=== PATIENT | female | born 1945 | race Caucasian/White ===

== ENCOUNTER 2017-04-30 03:43 | Inpatient (IN) | payer MEDICARE, OTHER ==
[2017-04-29 16:11] LABS: INR 1.02
[~2017-04-30] VITALS: Ht 160 cm; Wt 74.8 kg
[2017-04-30] VITALS (11 sets, daily range): BP systolic 112–155; BP diastolic 63–86
[~2017-04-30 03:43] MED LIST: ALB18R INH; HYDR-2966 PO; LEVO-3 PO; METO-233 PO; [UNRECOGNIZED DRUG - CODE] PO
[2017-04-30] MEDS ORDERED: PROPOFOL EMUL(*) 10MG/ML 20 ML 20 ML ONE (12:53)
[2017-04-30] MEDS ORDERED: LIDOCAINE MPF 1% 5 ML VIAL ONE ×3 (12:53→18:49)
[2017-04-30] MEDS ORDERED: fentaNYL CITR 100 MCG/2 ML AMP ONE ×5 (12:53→17:13)
[2017-04-30] MEDS ORDERED: ONDANSETRON 4 MG/2 ML VIAL ONE ×2 (12:53→17:19)
[2017-04-30] MEDS ORDERED: DEXAMETHASONE SOD 4 MG/ML VIAL ONE (12:54)
[2017-04-30] MEDS ORDERED: cloNIDine EPIDUR INJ 100MCG/ML 40 MCG, ROPIVACAINE 0.5% 20 ML VIAL 25 ML, EPINEPHrine H... INJ ONE (14:00)
[2017-04-30] MEDS ORDERED: TRANEXAMIC AC 1000 MG/10ML SDV 1,000 MG in DEXTROSE 5% 50 ML BAG 50 ML IV ONE (14:00)
[2017-04-30] MEDS ORDERED: MIDAZOLAM 2 MG/2 ML VIAL IVP ONE (14:00)
[2017-04-30] MEDS ORDERED: LIDOCAINE/SOD BICARB 8.4% SYR ID ONE (14:00)
[2017-04-30] MEDS ORDERED: FAMOTIDINE 20 MG TAB PO ONE (14:00)
[2017-04-30] MEDS ORDERED: NORMOSOL R SOLN(*) 1000 ML BAG 1,000 ML IV PRN (14:00)
[2017-04-30] MEDS ORDERED: CLINDAMYCIN(*) 900 MG/NS 50 ML 50 ML IVPB ONE (14:00)
[2017-04-30] MEDS ORDERED: NS 0.9% IRRIGATION 1000ML PLCT IR ONE (16:24)
[2017-04-30] MEDS ORDERED: LACTATED RINGER 3000 ML BAG IR ONE (16:24)
[2017-04-30] MEDS ORDERED: ROPIVACAINE 0.5% 20 ML VIAL ONE (17:15)
[2017-04-30] MEDS ORDERED: NS 0.9% 20 ML SDV 20 ML ONE (17:16)
[2017-04-30] MEDS ORDERED: ROPIVACAINE 0.2% 20 ML VIAL ONE ×2 (17:17)
[2017-04-30] MEDS ORDERED: MAGNESIUM CITRATE 300 ML BTL PO PRN (17:25)
[2017-04-30] MEDS ORDERED: PROMETHAZINE 25 MG/ML 1 ML AMP IVP PRN (17:25)
[2017-04-30] MEDS ORDERED: NALOXONE HCL 0.4 MG/ML VIAL IVP PRN (17:25)
[2017-04-30] MEDS ORDERED: ONDANSETRON 4 MG/2 ML VIAL IVP PRN (17:25)
[2017-04-30] MEDS ORDERED: FLUSH 10 ML SYR IVP PRN (17:25)
[2017-04-30] MEDS ORDERED: diphenhydrAMINE 25 MG CAP PO PRN (17:25)
[2017-04-30] MEDS ORDERED: MORPHINE SULFATE 30 MG PCA IV PRN ×2 (17:25)
[2017-04-30] MEDS ORDERED: ACETAMINOPHEN 500 MG TAB PO PRN (17:25)
[2017-04-30] MEDS ORDERED: KCL/D5LR 20 MEQ/1000 ML PREMIX 1,000 ML IV PRN (17:25)
[2017-04-30] MEDS ORDERED: MIDAZOLAM 2 MG/2 ML VIAL ONE (17:33)
[2017-04-30] MEDS ORDERED: PROMETHAZINE 25 MG/ML 1 ML AMP ONE (17:36)
[2017-04-30] MEDS ORDERED: NORMOSOL R SOLN(*) 1000 ML BAG 1,000 ML IV ONE (17:59)
--- NOTE | 2017-04-30 18:10 | RADIOLOGY IMAGING REPORT ---
FACILITY: [facility] [place] PATIENT NAME: Alix Montemayor : 1945 MR: [id number] V: [id number] EXAM DATE: ORDERING PHYSICIAN: GORDO LOVE TECHNOLOGIST: Location: [facility] Patient: Alix Montemayor : 1945 Visit/Account:[id number] Date of Sevice: 04/30/2017 SHOULDER 1 VIEW RIGHT Indication: Postop right shoulder arthroplasty. Comparison: Unavailable Findings: 2 views right shoulder. Status post right shoulder arthroplasty. The orthopedic devices appear to be well situated. No periprosthetic lucencies. No acute fracture or dislocation. No bony lesions. There is old inferior right lateral rib fracture. Soft tissues show no radiopaque foreign body with some zarate bcutaneous air and edema. IMPRESSION: 1. Status post right shoulder arthroplasty without sequelae. Alignment appears anatomical. Report Dictated By: Gordo Black at 04/30/2017 6:04 PM Report E-Signed By: Gordo Black at 04/30/2017 6:07 PM WSN:[id number]
[2017-04-30] MEDS ORDERED: POTA20TA94 PO (18:37)
[2017-04-30] MEDS ORDERED: MULT1CAP59 PO (18:37)
[2017-04-30] MEDS ORDERED: PHENYLEPHRINE/NS/PF 0.4MG/10ML ONE (19:02)
--- NOTE | 2017-04-30 19:39 | Hospitalist Progress Note ---
Subjective Progress Notes Subjective Patient seen post-op. Reviewed PMHx and medications. At present she reports surgical site pain. She denies any CP/SOB. She did have some initial post-op nausea, but it has improved. Physical Exam Vital Signs Date Time Temp Pulse Resp B/P (MAP) Pulse Ox O2 Delivery O2 Flow Rate FiO2 04/30/17 18:25 97.9 63 16 147/82 (103) 94 Nasal Cannula 2.0 Intake and Output 05/01/17 07:00 Intake Total 1800 ml Balance 1800 ml Intake IV Total 1800 ml # Voids 1 General Appearance: Alert, Awake Cardiovascular: Regular Rate and Rhythm Respiratory: Clear to Auscultation Extremities: Other (RUE in immobilizer) Result Diagram: 04/30/17 1711 Assessment and Plan Problems: (1) HTN (hypertension) Status: Chronic Assessment & Plan: Will monitor BPs and resume her metoprolol and HCTZ as needed. (2) Hypothyroidism Status: Chronic Assessment & Plan: Continue thyroid replacement therapy with L-thyroxine 112mcg PO daily. SARAH CLEMENTS MD Apr 30, 2017 19:39
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
[2017-04-30] MEDS ORDERED: METOPROLOL SUCC XL 50 MG TABCR 50 MG TAB.ER.24H PO SCH (21:00)
[2017-04-30] MEDS ORDERED: NS 0.9% IVPB SCH (22:00)
[2017-04-30] MEDS ORDERED: CLINDAMYCIN IVPB SCH (22:00)
[2017-04-30] MEDS: CLINDAMYCIN(*) 600 MG/NS 50 ML 50 ML IVPB SCH (22:47)
[2017-05-01] VITALS: BP 119/67
[2017-05-01 01:00] VITALS: BP 122/53
[2017-05-01] MEDS: CLINDAMYCIN(*) 600 MG/NS 50 ML 50 ML IVPB SCH (05:20)
[2017-05-01 05:50] LABS: PLATELET COUNT, AUTOMATED 172 K/uL (150-450)
[2017-05-01] MEDS ORDERED: LEVOTHYROXINE SOD 0.112 MG TAB PO SCH (06:00)
[2017-05-01 07:30] VITALS: BP 124/81
[2017-05-01] MEDS ORDERED: HYDROCHLOROTHIAZIDE 25 MG TAB PO SCH (09:00)
--- NOTE | 2017-05-01 09:27 | Hospitalist Progress Note ---
Subjective Progress Notes Subjective She has had some occasional nausea (now improved). She denies any other complaints. She is planning on DC today. Physical Exam Vital Signs Date Time Temp Pulse Resp B/P (MAP) Pulse Ox O2 Delivery O2 Flow Rate FiO2 05/01/17 07:30 98.2 60 16 124/81 (95) 91 Nasal Cannula 2.0 Intake and Output 05/02/17 07:00 Output Total 500 ml Balance -500 ml Output Emesis 500 ml # Voids 1 # Emeses 1 General Appearance: Alert, Awake Result Diagram: 05/01/17 0519 Assessment and Plan Problems: (1) HTN (hypertension) Status: Chronic Assessment & Plan: She will continue her metoprolol and HCTZ. (2) Hypothyroidism Status: Chronic Assessment & Plan: Continue thyroid replacement therapy with L-thyroxine 112mcg PO daily. Exam Sepsis Risk: No Definite Risk SARAH CLEMENTS MD May 01, 2017 09:27
[2017-05-01] MEDS ORDERED: OXYC-865 PO ×2 (09:53→09:54)
== END 2017-05-01 10:35 | disposition home or self-care (01) | DRG 483 ==
LOC: OR 03:43 → MED 18:20
PROVIDERS: ADMIT Orthopaedic Surgery Hand Surgery; ATTEND Orthopaedic Surgery Hand Surgery
PROC: 0RRJ00Z Replacement of Right Shoulder Joint with Reverse Ball and Socket Synthetic Substitute, Open Approach (ICD-10-PCS; principal; 2017-04-30 14:42)
DX: M19.011 Primary osteoarthritis, right shoulder (principal); M75.111 Incomplete rotator cuff tear or rupture of right shoulder, not specified as traumatic; I10 Essential (primary) hypertension; E03.9 Hypothyroidism, unspecified; Z96.653 Presence of artificial knee joint, bilateral; Z90.710 Acquired absence of both cervix and uterus
CPT/HCPCS: 36415; 85014; 85018; 85025; 85610; 86850; 86900; 86901; 97165; C1713; C1776; J0171; J0735; J1100; J1885; J2001; J2250; J2370; J2405; J2550; J2704; J2795; J3010; J3490; J7050; J7060

== ENCOUNTER → 2018-05-02 | Outpatient (REF) | payer MEDICARE, OTHER ==
[~2018-05-02] MED LIST changes: +MULT1CAP59 PO; +OXYC-865 PO; +POTA20TA94 PO
== END ==
LOC: ZZHOSPICE 13:06
PROVIDERS: ATTEND Nurse Practitioner Primary Care
DX: Z02.9 Encounter for administrative examinations, unspecified (principal)